=== PATIENT | female | born 1975 | race Caucasian/White ===

== ENCOUNTER 2017-08-14 13:42 | Emergency (ER) | payer MEDICAID ==
[~2017-08-14] VITALS: Ht 152.4 cm; Wt 70.5 kg
[~2017-08-14 13:42] MED LIST: ALLE24TA PO; ANTISOL30 LEFT EAR; AZIT250T43 PO; CLON.5 PO; EFFE75CA PO; MOTI25CH PO
[2017-08-14 13:57] VITALS: BP 116/80; PULSE 147; RESP 16; TEMP 99.7; O2SAT 97
--- NOTE | 2017-08-14 14:11 | PD ---
HPI Chief Complaint: Oral / Dental Pain or Problem Time Seen by Provider: 14:11 Travel History International Travel<30 days: No Contact w/Intl Traveler<30days: No Traveled to known affect area: No History of Present Illness HPI 42-year-old female with history of significant dental caries and dental disease, presents the emergency department with increasing pain, swelling , and drainage from the left lower jaw. Patient is aware that she has several other teeth.. She states the pain is not, but she knows she needs antibiotics. She denies fever chills or difficulty swallowing. She is allergic to penicillin and sulfa. PFSH Past Medical History Medical History: Denies Significant Hx Reproductive: Yes (pmd) ?: Not Menopausal: Yes Tubal Ligation: Yes Social History Alcohol Use: No Tobacco Use: Yes (/ ppd) Substance Use: No Allergies-Medications (Allergen,Severity, Reaction): Coded Allergies: Sulfa (Sulfonamide Antibiotics) (Unverified Allergy, Unknown, 05/17/17) penicillin G (Unverified Allergy, Unknown, 05/17/17) Reported Meds & Prescriptions Reported Meds & Active Scripts Active No Active Prescriptions or Reported Medications Review of Systems Except as stated in HPI: all other systems reviewed are Neg General / Constitutional: No: Fever, Chills Eyes: No: Visual changes HENT: Positive: Gingival Bleeding, Dental Difficulties, No: Headaches, Vertigo , Lightheadedness, Sore Throat, Rhinitis, Rhinorrhea, Congestion, Nosebleed, Neck Stiffness, Neck Pain, Earache Cardiovascular: No: Chest Pain or Discomfort Respiratory: No: Shortness of Breath Gastrointestinal: No: Abdominal Pain Genitourinary: No: Dysuria Musculoskeletal: No: Pain Skin: No Rash Neurologic: No: Weakness Psychiatric: No: Depression Endocrine: No: Polydipsia Hematologic/Lymphatic: No: Easy Bruising Physical Exam Narrative GENERAL: Patient appears in no acute distress. SKIN: Warm and dry. Normal color. Normal turgor. Mild erythema over the left lower jaw with swelling above the ramus. HEAD: Atraumatic. Normocephalic. EYES: Pupils equal and round. No scleral icterus. No injection or drainage. ENT: No nasal bleeding or discharge. Mucous membranes pink and moist. Very poor dental health with multiple caries in all teeth. Abscess is located lateral to the #20, 19 and 18 teeth. Pharynx is clear. Airway is patent. No significant lymphadenopathy. NECK: Trachea midline. Supple and nontender without signs of Ricky's angina currently. CARDIOVASCULAR: Regular rate and rhythm. RESPIRATORY: No accessory muscle use. Clear to auscultation. Breath sounds equal bilaterally. MUSCULOSKELETAL: Extremities without clubbing, cyanosis, or edema. No obvious deformities. NEUROLOGICAL: Awake and alert. No obvious cranial nerve deficits. Motor grossly within normal limits. Five out of 5 muscle strength in the arms and legs. Normal speech. PSYCHIATRIC: Appropriate mood and affect; insight and judgment normal. Data Data Last Documented VS Vital Signs Date Time Temp Pulse Resp B/P (MAP) Pulse Ox O2 Delivery O2 Flow Rate FiO2 08/14/17 13:57 99.7 147 16 116/80 (92) 97 Orders Orders Clindamycin Inj (Cleocin Inj) (08/14/17 14:30) [facility] Medical Decision Making Medical Screen Exam Complete: Yes Emergency Medical Condition: Yes Differential Diagnosis Periodontal disease. Dental abscess. Dental caries. Narrative Course Patient is given clindamycin 600 mg IM Patient continued on clindamycin 300 mg 4 times a day 10 days. Patient also given ibuprofen 600 mg 4 times a day #40. Patient to follow-up with dental resources as soon as possible. Patient to return to emergency Department with any increasing swelling in the neck or difficulty swallowing as discussed. Diagnosis Primary Impression: Dental abscess Referrals: Dentist Patient Instructions: Dental Abscess (ED), General Instructions Additional Instructions: Patient is given clindamycin 600 mg IM Patient continued on clindamycin 300 mg 4 times a day 10 days. Patient also given ibuprofen 600 mg 4 times a day #40. Patient to follow-up with dental resources as soon as possible. Patient to return to emergency Department with any increasing swelling in the neck or difficulty swallowing as discussed. Med/Other Pt SpecificInfo: Prescription(s) given Scripts No Active Prescriptions or Reported Meds Disposition: 01 DISCHARGE HOME Condition: Stable Corona Eduardo Aug 14, 2017 14:11
[2017-08-14] MEDS ORDERED: IBUP-232 PO (14:26)
[2017-08-14] MEDS ORDERED: CLIN150C14 PO (14:26)
[2017-08-14] MEDS ORDERED: CLINDAMYCIN PHOS 600 MG/4 ML VIAL IM ONE (14:30)
== END 2017-08-14 15:03 | disposition home or self-care (01) ==
LOC: PHEFT 13:42
DX: K04.7 Periapical abscess without sinus (principal); K02.9 Dental caries, unspecified; F17.200 Nicotine dependence, unspecified, uncomplicated
CPT/HCPCS: 96372